=== PATIENT | female | born 1990 | race Caucasian/White ===

== ENCOUNTER 2021-09-20 06:23 | Emergency (ER) | payer MEDICAID ==
[~2021-09-20] VITALS: Ht 165.1 cm; Wt 115.5 kg
[~2021-09-20 06:23] MED LIST: HYDR473S49 PO; ONDA8TAB9 PO
[2021-09-20 07:12] VITALS: BP 138/108
== END 2021-09-20 07:55 | disposition home or self-care (01) ==
LOC: ER 06:23
DX: J06.9 Acute upper respiratory infection, unspecified (principal); B97.89 Other viral agents as the cause of diseases classified elsewhere; R19.7 Diarrhea, unspecified; R49.0 Dysphonia; F17.200 Nicotine dependence, unspecified, uncomplicated; I10 Essential (primary) hypertension; Z98.84 Bariatric surgery status; Z79.899 Other long term (current) drug therapy
CPT/HCPCS: 93005; 99283

== ENCOUNTER 2021-12-17 08:23 | Emergency (ER) | payer MEDICAID ==
[~2021-12-17] VITALS: Ht 165.1 cm; Wt 118.2 kg
[2021-12-17 08:32] VITALS: BP 173/105
[2021-12-17] MEDS ORDERED: ORPH100T2 PO (09:19)
== END 2021-12-17 09:38 | disposition home or self-care (01) ==
LOC: ER 08:23
DX: S39.012A Strain of muscle, fascia and tendon of lower back, initial encounter (principal); G89.29 Other chronic pain; M54.50 Low back pain, unspecified; X58.XXXA Exposure to other specified factors, initial encounter; Y93.89 Activity, other specified; Y92.89 Other specified places as the place of occurrence of the external cause; Y99.8 Other external cause status; Z79.899 Other long term (current) drug therapy
CPT/HCPCS: 99283

== ENCOUNTER 2024-08-17 08:55 | Emergency (ER) | payer MEDICAID, OTHER ==
[~2024-08-17] VITALS: Ht 165.1 cm; Wt 107.5 kg
[~2024-08-17 08:55] MED LIST changes: +ORPH100T4 PO
[2024-08-17 09:06] VITALS: TEMP 97.8
[2024-08-17] MEDS: proparacaine 0.5% ophthalmic drops 15ml EACHEYE ONE (10:00)
[2024-08-17] MEDS ORDERED: ERYT1OIN6 EACHEYE (10:14)
--- NOTE | 2024-08-17 10:15 | Physician Documentation ---
History of Present Illness ~ Chief Complaint: Eye Pain Stated Complaint: EYE PAIN Time Seen by MD: 09:17 Primary Medical Doctor: none HPI Female presents to the ED with a complaint of a left eye pain for two days. She states she thinks she got an eyelash in her left thigh that has had increased pain and redness. Her eyes are watery. Medication Reconciliation Allergies: Coded Allergies: No Known Allergies (Unverified , 08/17/24) Scheduled Erythromycin Base Opth. Ointment* (Erythromycin Opth. Ointment*), 1 APPLIC EACHEYE Q4HWA Ondansetron (Zofran Odt), 1 TAB PO Q8H Scheduled PRN Hydrocodone/Acetaminophen (Lortab 10 mg-300 mg/15 ml Elxr), 15-30 ML PO Q6H PRN PRN for pain Orphenadrine Citrate (Norflex), 1 TAB PO Q12H PRN PRN for muscle spasms Past Medical History Past Medical History: No Pertinent History, Hypertension, Chronic Back Pain Past Surgical History: gastric bypass, other Alcohol Use: Rarely Drug Use: none Lives In: Home Occupation: employed Review of Systems All Other Systems at this time: Reviewed and Negative ROS As stated above in the HPI, otherwise all systems are reviewed and negative. Physical Exam Vital Signs: Temperature: 97.8, Source: Temporal, Heart Rate: 108, Respiratory Rate: 18, BP: 158/101, Pulse Oximetry: 98, Weight: 107.450 Physical Exam General: Alert, no apparent distress. HEENT: PERRL, EOMI, no injection, moist mucous membranes. Conjunctiva injected on the left side Neck: Full range of motion. Neurologic: Oriented x4. Psychiatric: Normal mood and affect. Skin: Normal color, warm and dry. No edema, no ecchymosis. Procedures Eye Procedure Alcaine Drops Administered: Yes Reexamination after removal: abrasion Tolerated Procedure Well?: yes, no complications Procedure Note no Obvious foreign bodies, could not visualize a corneal abrasion Progress Results/Orders Results/Orders Completed Orders - ANGEL LITTLE NP Proparacaine Ophth Solution (Alcaine Oph (08/17/24 09:20) Vital Signs 08/17/24 08/17/24 08/17/24 09:06 10:21 10:23 Temp 97.8 Pulse 108 108 108 Resp 18 15 15 B/P (MAP) 158/101 158/101 (120) 158/101 Pulse Ox 98 98 98 Medical Decision Making Findings suspected corneal abrasion. Foreign body was going to treat her with eye lubricant and erythromycin Eye Diff. Dx: Considerations: Include: Chalazoin, Conjuctivits-allergic, Conjuctivitis-bacterial, Conjuctivits-chlamydial, Conjuctivitis-viral, Corneal abrasion, Corneal laceration, Corneal ulceration, Foreign body-conjuctiva, Foreign body-corneal, Foreign body-intraocular, Foreign body-lid, Glaucoma, Globe rupture, Hordeolum, Iritis, Orbital cellulitis, Periobital cellulitis, Retinal artery occulsion, Retinal vein occlusion, Rust ring, Subconjunctival hem, Ultraviolet keratitis, Uveitis, Vitreous hemorrhage, Other Departure Disposition: 01 HOME / SELF CARE / HOMELESS Impression: Primary Impression: Corneal abrasion Condition: Stable Discharge Instructions: Corneal Abrasion Referrals: NO PRIMARY CARE PROVIDER (PCP) Prescriptions Erythromycin Base Opth. Ointment* (Erythromycin Opth. Ointment*) 1 Gm Tube 1 APPLIC EACHEYE Q4HWA, #1 EACH Prov: ANGEL LITTLE ENDOCRINOLOGY NURSE 08/17/24 Education Educated: Patient Educated regarding: diagnosis Signature Scribe Signature: g Attestation: The note accurately reflects work and decisions made by me.Angel Little - MARICARMEN 08/17/24 17:49 ANGEL LITTLE NP August 17, 2024 10:15
[2024-08-17 10:23] VITALS: BP 158/101; PULSE 108; RESP 15; O2SAT 98
== END 2024-08-17 10:26 | disposition home or self-care (01) ==
LOC: ER 08:55
DX: S05.02XA Injury of conjunctiva and corneal abrasion without foreign body, left eye, initial encounter (principal); Z79.899 Other long term (current) drug therapy; X58.XXXA Exposure to other specified factors, initial encounter; Y93.89 Activity, other specified; Y92.89 Other specified places as the place of occurrence of the external cause; Y99.8 Other external cause status
CPT/HCPCS: 99283